=== PATIENT | female | born 1960 | race Caucasian/White ===

== ENCOUNTER 2017-11-17 18:49 | Emergency (ER) | payer OTHER ==
[~2017-11-17] VITALS: Ht 160 cm; Wt 71.3 kg
[2017-11-17] MEDS ORDERED: BACTROBAN OINTM22 GM TP (20:11)
[2017-11-17] MEDS ORDERED: LOTRIMIN ULTRA12 GM TP (20:29)
[2017-11-17 20:42] LABS: HEMATOCRIT 36.6 % (36.0-46.0); HEMOGLOBIN 12.4 G/DL (11.9-15.5); MCH 29.2 PG (29.0-34.0); MCHC 33.9 G/DL (30.0-36.0); MCV 86.1 FL (83-99); PLATELET COUNT 247 K/uL (156-360); RBC DIS.WIDTH-CV 13.6 % (11.8-14.6); RBC DIS.WIDTH-SD 42.5 % (39-53); RED BLOOD COUNT 4.25 M/uL (3.80-5.20); WHITE BLOOD COUNT 8.7 K/uL (4.1-10.2)
[2017-11-17 20:58] LABS: CHLORIDE 105 mEq/L (99-109); POTASSIUM 4.2 mEq/L (3.7-5.4); SODIUM 140 mEq/L (136-147)
[2017-11-17 21:00] LABS: GLUCOSE 97 mg/dL (70-99)
[2017-11-17 21:04] LABS: CREATININE 0.8 mg/dL (0.6-1.3); GFR ESTIMATE (CALCULATED) > 59 mL/min/
[2017-11-17 21:05] LABS: UREA NITROGEN (BUN) 12 mg/dL (9-23)
[2017-11-17 21:09] VITALS: BP 121/65
[2017-11-18 10:47] LABS: LYME DISEASE SEROLOGY SCREEN NEGATIVE (NEGATIVE)
== END 2017-11-17 21:08 | disposition home or self-care (01) ==
LOC: EME 18:49
PROVIDERS: Nurse Practitioner Family
DX: R21 Rash and other nonspecific skin eruption (principal)
CPT/HCPCS: 80048; 85027; 86618; 99281; 99284